=== PATIENT | male | born 1975 | race American Indian/Alaskan Native ===

== ENCOUNTER 2018-05-12 16:44 | Emergency (ER) | payer OTHER ==
[2018-05-12 16:55] VITALS: BP 137/86
[2018-05-12] MEDS ORDERED: DELTASONE PO ONE (19:55)
[2018-05-12] MEDS ORDERED: NORCO 5/325 PO ONE (19:55)
--- NOTE | 2018-05-12 20:19 | Emergency Department Report ---
ED Neuro Deficit HPI - General Chief Complaint: Neuro Symptoms/Deficit Stated Complaint: FACE SWOLLEN Time Seen by Provider: 05/12/18 19:54 Source: patient Mode of arrival: Ambulatory Limitations: No Limitations - History of Present Illness Initial Comments: Patient is a 42-year-old -[place] male denies history of hypertension presents for left sided facial numbness and tingling with downgoing left - sided facial paralysis for 3 days stay still procedure one week ago follow-up with follow up with dentist and is advised to report to ED for facial paralysis now with left-sided facial numbness for left facial droop mild -right sided facial swelling 4/ 10 dental pain denies fevers or chills no extremity numbness or weakness patient is a mature gait is steady there is no chest pain and no shortness of breath no history of [place] or CVA nor Bey's palsy Onset/Timin -: Sudden, days(s) Last Observed Normal: 03:00 (3 days ago ) Location: left face Presenting Symptoms: Present: Weak/Paralyzed One Side, Facial Droop/Numbness History of same: No Place: home Severity: moderate Quality: weak, tingling, constant Improves With: none Worsens With: none On Anticoagulants: No Context: sudden onset Associated Symptoms: weakness Treatments Prior to Arrival: none - Related Data Home Medications: Previous Rx's Medication Instructions Recorded Last Taken Type Acyclovir [Zovirax] 400 mg PO 5XD #50 tablet 05/12/18 Unknown Rx Clindamycin [Clindamycin CAP] 300 mg PO Q6H #40 capsule 05/12/18 Unknown Rx HYDROcodone/APAP 5-325 [[place] 1 each PO Q6HR PRN #15 tablet 05/12/18 Unknown Rx 5-325 mg TAB] predniSONE [Deltasone] 50 mg PO QDAY #1 tab 05/12/18 Unknown Rx predniSONE [Deltasone] 60 mg PO QDAY #22 tab 05/12/18 Unknown Rx Allergies/Adverse Reactions: Allergies Allergy/AdvReac Type Severity Reaction Status Date / Time No Known Allergies Allergy Unverified 05/12/18 16:55 ED Review of Systems ROS: Stated complaint: FACE SWOLLEN Other details as noted in HPI Constitutional: denies: chills, fever Eyes: denies: eye pain, eye discharge, vision change ENT: denies: ear pain, throat pain Respiratory: denies: cough, shortness of breath, wheezing Cardiovascular: as per HPI Endocrine: no symptoms reported Gastrointestinal: denies: abdominal pain, nausea, diarrhea Genitourinary: denies: urgency, dysuria Musculoskeletal: myalgia, other (left sided facial numbness weakness parlaysis facial droop ) Skin: as per HPI Neurological: weakness, numbness (left facial ), paresthesias Psychiatric: denies: anxiety, depression Hematological/Lymphatic: denies: easy bleeding, easy bruising ED Past Medical Hx - Past Medical History Previous Medical History?: No - Surgical History Past Surgical History?: No - Social History Smoking Status: Never Smoker Substance Use Type: Alcohol - Medications Home Medications: Home Medications Medication Instructions Recorded Confirmed Last Taken Type Acyclovir [Zovirax] 400 mg PO 5XD #50 tablet 05/12/18 Unknown Rx Clindamycin [Clindamycin CAP] 300 mg PO Q6H #40 capsule 05/12/18 Unknown Rx HYDROcodone/APAP 5-325 [[place] 1 each PO Q6HR PRN #15 tablet 05/12/18 Unknown Rx 5-325 mg TAB] predniSONE [Deltasone] 50 mg PO QDAY #1 tab 05/12/18 Unknown Rx predniSONE [Deltasone] 60 mg PO QDAY #22 tab 05/12/18 Unknown Rx ED Neuro Physical Exam - General Limitations: No Limitations (was a little daughter is G portion leave IV) General appearance: alert, in no apparent distress Suspected Stroke: No - Head Head exam: Present: normocephalic, normal inspection, other (left sided facial droop ) - Expanded Head Exam Expanded Head exam: Absent: tenderness of temporal artery - Eye Eye exam: Present: normal appearance, PERRL, EOMI. Absent: scleral icterus, conjunctival injection, nystagmus, periorbital swelling, periorbital tenderness , other (no drainage ) Pupils: Present: normal accommodation - ENT ENT exam: Present: mucous membranes moist, TM's normal bilaterally, normal external ear exam - Expanded ENT Exam Expanded Ear exam: Present: normal external inspection. Absent: auricular hematoma, auricular trauma TM/Canal exam: Mastoid Tenderness: Right TM, Canal Tenderness: Right TM Mouth exam: Present: normal external inspection, tongue normal, tongue elevation. Absent: trismus, muffled voice Teeth exam: Present: dental caries, dental tenderness # (18 mild gum erythema pain mild facial swelling left with right droop numbness ) Throat exam: Positive: normal inspection. Negative: tonsillar erythema, tonsillomegaly, tonsillar exudate, R peritonsillar mass, L peritonsillar mass - Neck Neck exam: Present: normal inspection, full ROM. Absent: tenderness, meningismus, lymphadenopathy, thyromegaly - Expanded Neck Exam Expanded Neck exam: Absent: tenderness, midline deformity, anterior neck swelling, thyroid mass, carotid bruit, tracheal deviation - Respiratory Respiratory exam: Present: normal lung sounds bilaterally. Absent: wheezes, stridor, chest wall tenderness - Cardiovascular Cardiovascular Exam: Present: regular rate, normal rhythm, normal heart sounds. Absent: systolic murmur, diastolic murmur, rubs, gallop - GI/Abdominal GI/Abdominal exam: Present: soft, normal bowel sounds. Absent: distended, rebound, mass, bruit, hernia - Rectal Rectal exam: Present: deferred - Extremities Exam Extremities exam: Present: normal inspection, full ROM, normal capillary refill. Absent: tenderness, pedal edema, joint swelling, calf tenderness - Back Exam Back exam: Present: normal inspection, full ROM. Absent: tenderness, muscle spasm, paraspinal tenderness, vertebral tenderness, rash noted - Neurological Exam Neurological exam: Present: alert, oriented X3, normal gait, motor sensory deficit - NIHSS Assessment Interval: Baseline 1a. Level of Consciousness: alert 1b. LOC Questions: answers correctly 1c. LOC Commands: performs tasks correctly 2. Best Gaze: normal 3. Visual: no visual loss 4. Facial Palsy: partial paralysis (left) 5b. Motor Arm Right: no drift 5a. Motor Arm Left: no drift 6a. Motor Leg Left: no drift 6b. Motor Leg Right: no drift 7. Limb Ataxia: absent 8. Sensory: mild/moderate sensory loss (left facial numbness) 9. Best Language: no aphasia 10. Dysarthria: normal 11. Extinction/Inattention: no abnormality Total Score: 3 Stroke Severity: Minor Stroke - Psychiatric Psychiatric exam: Present: normal affect, normal mood - Skin Skin exam: Present: warm, dry, intact, normal color. Absent: rash ED Course Vital Signs 05/12/18 16:50 Temperature 97.9 F Pulse Rate 68 Respiratory 16 Rate Blood Pressure 137/86 O2 Sat by Pulse 100 Oximetry on the - Lab Data Result diagrams: 05/12/18 21:34 05/12/18 21:34 Lab Results 05/12/18 05/12/18 Range/Units 21:34 21:34 WBC 5.9 (4.5-11.0) K/mm3 RBC 4.35 (3.65-5.03) M/mm3 Hgb 14.7 (11.8-15.2) gm/dl Hct 43.1 (35.5-45.6) % MCV 99 H (84-94) fl MCH 34 H (28-32) pg MCHC 34 (32-34) % RDW 12.4 L (13.2-15.2) % Plt Count 250 (140-440) K/mm3 Lymph % (Auto) 29.4 (13.4-35.0) % [place] % (Auto) 6.0 (0.0-7.3) % Eos % (Auto) 1.6 (0.0-4.3) % Baso % (Auto) 0.5 (0.0-1.8) % Lymph # 1.7 (1.2-5.4) K/mm3 [place] # 0.4 (0.0-0.8) K/mm3 Eos # 0.1 (0.0-0.4) K/mm3 Baso # 0.0 (0.0-0.1) K/mm3 Seg Neutrophils % 62.5 (40.0-70.0) % Seg Neutrophils # 3.7 (1.8-7.7) K/mm3 Sodium 138 (137-145) mmol/L Potassium 3.7 (3.6-5.0) mmol/L Chloride 97.9 L (98-107) mmol/L Carbon Dioxide 27 (22-30) mmol/L Anion Gap 17 mmol/L BUN 15 (9-20) mg/dL Creatinine 1.0 (0.8-1.5) mg/dL Estimated GFR > 60 ml/min BUN/Creatinine Ratio 15 % Glucose 98 (75-100) mg/dL Calcium 9.7 (8.4-10.2) mg/dL - Radiology Data Radiology results: report reviewed, image reviewed Right sided mastoiditis otherwise normal ct exam - Medical Decision Making CT demonstrates mastoiditis right no stroke no bleed no dental abscess plan treatment for Bey's palsy mastoiditis high-dose steroids 5 days acyclovir Tylenol 3 clindamycin for mastoiditis patient will follow-up with [facility] in 2-3 days return to ED should symptoms worsen there is no eye drainage or irritation has verbalized agreement and understanding with discharge plan be DC'd home in stable condition at this time pain is now 2/10 no change in sensation Critical care attestation.: If time is entered above; I have spent that time in minutes in the direct care of this critically ill patient, excluding procedure time. ED Disposition Clinical Impression: Bey's palsy, Mastoiditis of right side Disposition: DC-01 TO HOME OR SELFCARE Is pt being admited?: No Does the pt Need Aspirin: No Condition: Good Instructions: Bey Palsy (ED), Mastoiditis in Children (ED) Prescriptions: Acyclovir [Zovirax] 400 mg PO 5XD #50 tablet Clindamycin [Clindamycin CAP] 300 mg PO Q6H #40 capsule HYDROcodone/APAP 5-325 [[place] 5-325 mg TAB] 1 each PO Q6HR PRN #15 tablet PRN Reason: Pain predniSONE [Deltasone] 60 mg PO QDAY #22 tab predniSONE [Deltasone] 50 mg PO QDAY #1 tab Referrals: [facility] [Outside] - 3-5 Days CHI GRIJALVA MD [Staff Physician] - 3-5 Days Forms: Work/School Release Form(ED) Time of Disposition: 22:43
--- NOTE | 2018-05-12 20:53 | Cat Scan Report ---
FINAL REPORT PROCEDURE: CT HEAD/BRAIN WO CON TECHNIQUE: Computerized tomography of the head was performed without contrast material. HISTORY: facial numbness COMPARISON: No prior studies are available for comparison. FINDINGS: Brain: Brain density appears normal. No evidence of intracranial hemorrhage. No parenchymal hemorrhage, mass lesions or mass effect are seen. No abnormal extraxial fluid collects or masses are seen. Ventricles: Ventricles are normal size and are midline. Bone Windows: No evidence of skull fracture. Paranasal sinuses: Clear Mastoid air cells: Mastoid air cells on the right are opacified suggesting mastoiditis. Middle ear appears clear. Left mastoid air cells are clear. IMPRESSION: Right-sided mastoiditis otherwise negative exam.
[2018-05-12] MEDS ORDERED: CLEOCIN 900 MG/50 mL 900 MG/50 ML BAG IV ONE (21:03)
[2018-05-12 21:53] LABS: Basophils % (Auto) 0.5 % (0.0-1.8); Eosinophils # (Auto) 0.1 K/mm3 (0.0-0.4); Eosinophils % (Auto) 1.6 % (0.0-4.3); Hematocrit 43.1 % (35.5-45.6); Hemoglobin 14.7 gm/dl (11.8-15.2); Lymphocytes # (Auto) 1.7 K/mm3 (1.2-5.4); Lymphocytes % (Auto) 29.4 % (13.4-35.0); Mean Corpuscular HGB Conc 34 % (32-34); Mean Corpuscular Hemoglobin 34 pg (28-32); Mean Corpuscular Volume 99 fl (84-94); Monocytes # (Auto) 0.4 K/mm3 (0.0-0.8); Platelet Count 250 K/mm3 (140-440); Red Blood Count 4.35 M/mm3 (3.65-5.03); Red Cell Distribution Width 12.4 % (13.2-15.2)
[2018-05-12 22:10] LABS: BUN/Creatinine Ratio 15; Blood Urea Nitrogen 15 mg/dL (9-20); Calcium 9.7 mg/dL (8.4-10.2); Hemolysis Index 4
== END 2018-05-12 22:50 | disposition home or self-care (01) ==
LOC: ED 16:44
DX: G51.0 Bell's palsy (principal); H70.91 Unspecified mastoiditis, right ear
CPT/HCPCS: 36415; 70450; 80048; 85025; 96365; 99284; J7512